=== PATIENT | male | born 1985 | race Caucasian/White ===

== ENCOUNTER 2017-10-26 23:13 | Outpatient (CLI) | payer OTHER | END 2017-10-26 23:14 | disposition critical access hospital (66) | LOC: EMS 23:13 | PROVIDERS: ATTEND Surgery | DX: R46.2 Strange and inexplicable behavior (principal) | CPT/HCPCS: A0425; A0429 ==

== ENCOUNTER 2017-10-26 23:28 | Emergency (ER) | payer OTHER ==
--- NOTE | 2017-10-26 23:44 | ED Physician Documentation ---
PD HPI ALTERED MENTAL STATUS - Stated complaint Stated Complaint: AMS - History obtained from History obtained from: Patient, Family (Patient reportedly started acting strange with some paranoia, anxiety, and visual hallucinations (colors and lights) this evening. He had been somewhat depressed lately, per . He drinks heavily/regularly but had not had too much as yet tonight. Denies recreational drug use. He had been acting angry or anxious the past few days as well, but not like this evening. He tried to lock his out of the house. He then went to couch and was sleeping or less responsive. Police/EMS notified, and they found him sleeping on the couch. He got very anxious and belligerent when they woke him up. Once more aware of circumstances he then got more settled physicially, but was still confrontational verbally. Kehinde to ED for concern of "medical problem" per [employer] officer, as he related it to me, and there is paperwork for the Officer wanting to place the patient on an involuntary hold for behavior and potential concern for others (though he did not make any threatening statements nor hurt anyone).), EMS, Police - History of Present Illness Timing - onset: Today (this evening) Timing - duration: Hours Timing - details: Abrupt onset Quality / character: Agitated, Hallucinating (some possible visual hallucinations according to his .) Associated symptoms: No: Fever, Stiff neck, Cough, Seizure activity, Syncope Contributing factors: Intoxicated. No: Diabetic, Recent illness, Substance abuse, Known psych illness Basline status: Alert and oriented X 3, Ambulatory Treatment [employer]: D50 Similar symptoms before: Has not had sx before Recently seen: Not recently seen Review of Systems Constitutional: denies: Fever Nose: denies: Rhinorrhea / runny nose, Congestion Throat: denies: Sore throat Cardiac: denies: Chest pain / pressure, Palpitations Respiratory: denies: Cough GI: denies: Abdominal Pain, Vomiting, Diarrhea Skin: denies: Rash, Lesions Neurologic: denies: Focal weakness, Numbness, Syncope Psychiatric: denies: Suicidal, Homicidal, Delusions Endocrine: denies: Weight loss PD PAST MEDICAL HISTORY - Past Medical History Neuro: None Endocrine/Autoimmune: None GI: None - Present Medications Home Medications: Ambulatory Orders Medication Instructions Recorded Confirmed Ibuprofen 800 mg PO TID #20 tablet 02/25/16 - Allergies Allergies/Adverse Reactions: Allergies Allergy/AdvReac Type Severity Reaction Status Date / Time No Known Drug Allergies Allergy Verified 10/26/17 23:41 - Social History Does the pt smoke?: No Does the pt drink ETOH?: Yes Does the pt have substance abuse?: No PD ED PE NORMAL - Vitals Vital signs reviewed: Yes - General General: Alert and oriented X 3, Well developed/nourished, Other (alert and conversant. Somewhat verbally confrontational but follows direction and does not make any threatening gestures. ) - HEENT HEENT: Atraumatic, Pharynx benign - Neck Neck: Supple, no meningeal sign, No adenopathy - Cardiac Cardiac: RRR, No murmur - Respiratory Respiratory: Clear bilaterally - Abdomen Abdomen: Soft, Non tender - Derm Derm: Normal color, Warm and dry - Extremities Extremities: No deformity, Normal ROM s pain, No edema Results - Vitals Vitals: Vital Signs - 24 hr 10/26/17 10/27/17 10/27/17 23:30 00:00 06:16 Temperature 36.3 C L Heart Rate 109 H 105 H 71 Respiratory 18 18 16 Rate Blood Pressure 163/101 H 136/83 H 129/86 H O2 Saturation 94 97 93 10/27/17 07:24 Temperature Heart Rate 94 Respiratory 14 Rate Blood Pressure 132/84 H O2 Saturation 97 Oxygen O2 Source Room air - Labs Labs: Laboratory Tests 10/27/17 10/27/17 10/27/17 00:07 00:07 00:07 WBC 6.5 RBC 4.84 Hgb 15.6 Hct 44.8 MCV 92.4 MCH 32.2 H MCHC 34.9 RDW 12.8 Plt Count 175 MPV 9.2 Neut # 4.0 Lymph # 1.9 [place] # 0.4 Eos # 0.1 Baso # 0.0 Absolute Nucleated RBC 0.00 Nucleated RBC % 0.1 Sodium 144 Potassium 3.9 Chloride 104 Carbon Dioxide 26 Anion Gap 14.0 H BUN 11 Creatinine 0.9 Estimated GFR (MDRD) 98 Glucose 115 H Calcium 9.6 Total Bilirubin 0.4 AST 28 ALT 47 Alkaline Phosphatase 46 Total Protein 7.8 Albumin 4.8 Globulin 3.0 Albumin/Globulin Ratio 1.6 Lipase 21 L TSH 1.86 Salicylates < 6.0 Urine Opiates Screen Ur Oxycodone Screen Urine Methadone Screen Ur Propoxyphene Screen Acetaminophen < 10 L Ur Barbiturates Screen Ur Tricyclics Screen Ur Phencyclidine Scrn Ur Amphetamine Screen U Methamphetamines Scrn U Benzodiazepines Scrn Urine Cocaine Screen U Cannabinoids Screen Ethyl Alcohol 228.8 10/27/17 10/27/17 10/27/17 00:15 06:11 07:16 WBC RBC Hgb Hct MCV MCH MCHC RDW Plt Count MPV Neut # Lymph # [place] # Eos # Baso # Absolute Nucleated RBC Nucleated RBC % Sodium Potassium Chloride Carbon Dioxide Anion Gap BUN Creatinine Estimated GFR (MDRD) Glucose Calcium Total Bilirubin AST ALT Alkaline Phosphatase Total Protein Albumin Globulin Albumin/Globulin Ratio Lipase TSH Salicylates Urine Opiates Screen NEGATIVE Ur Oxycodone Screen NEGATIVE Urine Methadone Screen NEGATIVE Ur Propoxyphene Screen NEGATIVE Acetaminophen Ur Barbiturates Screen NEGATIVE Ur Tricyclics Screen NEGATIVE Ur Phencyclidine Scrn NEGATIVE Ur Amphetamine Screen NEGATIVE U Methamphetamines Scrn NEGATIVE U Benzodiazepines Scrn NEGATIVE Urine Cocaine Screen NEGATIVE U Cannabinoids Screen NEGATIVE Ethyl Alcohol 105.7 76.9 PD MEDICAL DECISION MAKING - ED course Complexity details: reviewed results, re-evaluated patient (he rested through the night, without problems. He is awake this morning with repeat blood draw. Feels hungry. Denies suicidality and is not acting angry. Denies intent of hurting anyone. Verbal report given to on coming ER physician, as repeat blood draw is still pending. ), considered differential (given some paranoia and report of possible visual hallucinations, I would presume alcohol/drug effects. No focal deficit. No signs of infection nor injury. He is on police hold and his BA is elevated, so will need to have him in ED for about 6 hours for then redraw BA. He is resting in room after a short time of verbal direction. ), d/w patient Departure - Departure Clinical Impression: Altered mental status Qualifiers: Altered mental status type: unspecified Qualified Code(s): R41.82 - Altered mental status, unspecified Alcohol intoxication Qualifiers: Complication of substance-induced condition: with delirium Qualified Code(s): F10.921 - Alcohol use, unspecified with intoxication delirium Condition: Stable Record reviewed to determine appropriate education?: Yes Instructions: ED Alcohol Intoxication Comments: Avoid excess alcohol.
[2017-10-27 00:15] LABS: BASOPHILS % (AUTO) 0.8 %; EOSINOPHILS # (AUTO) 0.1 10^3/uL (0.0-0.7); EOSINOPHILS % (AUTO) 1.7 %; HCT - HEMATOCRIT 44.8 % (42.0-52.0); HGB - HEMOGLOBIN 15.6 g/dL (14.0-18.0); LYMPHOCYTES # (AUTO) 1.9 10^3/uL (1.5-3.5); LYMPHOCYTES % (AUTO) 29.1 %; MEAN CORPUSCULAR HEMOGLOBIN 32.2 pg (27.0-31.0); MEAN CORPUSCULAR HGB CONC 34.9 g/dL (32.0-36.0); MEAN CORPUSCULAR VOLUME 92.4 fL (80.0-94.0); MEAN PLATELET VOLUME 9.2 fL (7.4-11.4); MONOCYTES # (AUTO) 0.4 10^3/uL (0.0-1.0); MONOCYTES % (AUTO) 6.5 %; NEUTROPHILS % (AUTO) 61.9 %; NUCLEATED RED BLOOD CELLS AUTO 0.1 /100WBC; RED BLOOD COUNT 4.84 10^6/uL (4.70-6.10); RED CELL DISTRIBUTION WIDTH 12.8 % (12.0-15.0); UNCORRECTED WHITE BLOOD COUNT 6.5 x10^3/uL; WHITE BLOOD COUNT 6.5 x10^3/uL (4.8-10.8)
[2017-10-27 00:29] LABS: ALBUMIN/GLOBULIN RATIO 1.6 (1.0-2.2); BILIRUBIN,TOTAL 0.4 mg/dL (0.2-1.0); BUN - BLOOD UREA NITROGEN 11 mg/dL (6-20); CALCIUM 9.6 mg/dL (8.5-10.3); CARBON DIOXIDE - CO2 26 mmol/L (21-32); CHLORIDE 104 mmol/L (101-111); CREATININE 0.9 mg/dL (0.6-1.2); GFR - MDRD 98 (>89); GLUCOSE 115 mg/dL (70-100); LIPASE 21 U/L (22-51); POTASSIUM 3.9 mmol/L (3.5-5.0); SALICYLATE < 6.0 mg/dL; SODIUM 144 mmol/L (135-145); TOTAL PROTEIN 7.8 g/dL (6.7-8.2)
[2017-10-27 00:34] LABS: ACETAMINOPHEN < 10 ug/mL (10-30)
--- NOTE | 2017-10-27 07:18 | ED Physician Documentation ---
ED Addendum - Addendum Addendum: 10/27/17 07:40 Pt was turned over to me by the night provider. I reviewed his hisotry and physical exam and labs. pt is on a police hold. His repeat ETOH is < 80. I went in to evaluate the patient. He is A&O x3. in my opinion clinically sober. In my opinion has the capacity to make decisions. Has been calm while in the ER. He states he has no SI or HI. states he feels safe at home. Denies drug use. States that he does not drink every day but did drink yesterday because he got off work early. States that he does not have a problem with drinking. States that he does not want information and does not want to talk with anyone about his drinking. He states that he was not seeing things last night. I somewhat angry about being brought here by the police. he states that his plan is to go home call work because he is late, pack his stuff and leave the house and go and stay with a friend. We discussed his ETOH use. Informed him that he cannot drive for the next 24 hours. informed him that he can return to the ER at any point if he feels like hurting himself or others or if he would like help with his drinking. Informed him that he can followup with his primary care provider for these issues also. He expressed understanding.
[2017-10-27 07:25] VITALS: BP 132/84
== END 2017-10-27 07:59 | disposition home or self-care (01) ==
LOC: ED 23:28
DX: F10.921 Alcohol use, unspecified with intoxication delirium (principal); R41.82 Altered mental status, unspecified
CPT/HCPCS: 36415; 80053; 80306; 80307; 80320; 80329; 83690; 84443; 85025; 99284